=== PATIENT | male | born 1990 | race Caucasian/White ===

== ENCOUNTER 2021-09-29 18:11 | Emergency (ER) | payer BC ==
[2021-09-29] MEDS ORDERED: methylPREDNISolone Sod Succ/PF 125 MG/2 ML VIAL ONE (19:32)
[2021-09-29] MEDS ORDERED: diphenhydrAMINE 50 MG/ML VIAL ONE (19:32)
[2021-09-29] MEDS ORDERED: Ketorolac Tromethamine 30 MG/ML VIAL ONE (19:32)
[2021-09-29] MEDS ORDERED: Metoclopramide HCl 10 MG/2 ML VIAL ONE (19:32)
== END 2021-09-29 21:04 | disposition home or self-care (01) ==
LOC: CSHERS 18:11
DX: R51.9 Headache, unspecified (principal)
CPT/HCPCS: 96365; 96375; J1200; J1885; J2765; J2930